=== PATIENT | female | born 1990 | race Caucasian/White ===

== ENCOUNTER 2017-03-21 17:16 | Emergency (ER) | payer MEDICAID ==
[~2017-03-21] VITALS: Ht 160 cm; Wt 73.0 kg
[~2017-03-21 17:16] MED LIST: PRENATAL VIT
[2017-03-21 17:29] VITALS: BP 136/74
== END 2017-03-21 23:15 | disposition left against medical advice (07) ==
LOC: ER 17:16
DX: Z53.21 Procedure and treatment not carried out due to patient leaving prior to being seen by health care provider (principal)

== ENCOUNTER 2023-09-02 13:18 | Emergency (ER) | payer MEDICAID, OTHER ==
[~2023-09-02] VITALS: Ht 160 cm; Wt 67.0 kg
[2023-09-02 13:38] VITALS: BP 121/79; PULSE 98; RESP 16; TEMP 98.8; O2SAT 100
[2023-09-02] MEDS ORDERED: AMOX-494 MT (14:47)
== END 2023-09-02 18:42 | disposition home or self-care (01) ==
LOC: ER 13:18
DX: J03.90 Acute tonsillitis, unspecified (principal)
CPT/HCPCS: 99281

== ENCOUNTER 2023-11-08 20:42 | Emergency (ER) | payer MEDICAID ==
[~2023-11-08] VITALS: Ht 160 cm; Wt 68.0 kg
[~2023-11-08 20:42] MED LIST changes: +AMOX-494 MT
[2023-11-08 20:59] VITALS: BP 121/78; PULSE 94; RESP 18; TEMP 98.2; O2SAT 99
[2023-11-08] MEDS: FAMOTIDINE 20MG TABLET PO ONE (22:04)
[2023-11-08] MEDS ORDERED: DIPH25CA83 MT (23:02)
[2023-11-08] MEDS ORDERED: DIPH28.33 TP (23:02)
== END 2023-11-08 23:13 | disposition home or self-care (01) ==
LOC: ER 20:42
DX: T78.40XA Allergy, unspecified, initial encounter (principal); L50.9 Urticaria, unspecified; X58.XXXA Exposure to other specified factors, initial encounter
CPT/HCPCS: 99282